=== PATIENT | male | born 1990 | race Caucasian/White ===

== ENCOUNTER 2020-05-27 10:23 | Emergency (ER) | payer SELFPAY ==
[~2020-05-27 10:23] MED LIST: ANECREAM4% TP; HYDROCORTISONE30 GM RC; NO HOME MEDICATIONS; NORCO 325 MG-51 TA1 PO
[2020-05-27] MEDS ORDERED: WELLBUTRIN 75MG75 MG (10:51)
[2020-05-27] MEDS ORDERED: LITHIUM (10:52)
[2020-05-27] MEDS ORDERED: ATIVAN1 M1 PO (10:53)
[2020-05-27 12:00] VITALS: BP 139/82
== END 2020-05-27 11:53 | disposition home or self-care (01) ==
LOC: ED 10:23
DX: S03.00XA Dislocation of jaw, unspecified side, initial encounter (principal); X58.XXXA Exposure to other specified factors, initial encounter
CPT/HCPCS: J3010